=== PATIENT | female | born 1965 | race Caucasian/White ===

== ENCOUNTER 2021-06-07 04:47 | Day surgery (SDC) | payer OTHER ==
[2021-06-06 13:22] VITALS: BMI 29.9
[2021-06-07 08:33] VITALS: TEMP 98.2
[2021-06-07 09:28] VITALS: BP 125/70; PULSE 62
== END 2021-06-07 09:22 | disposition home or self-care (01) ==
LOC: JASU-ENDO 04:47
PROVIDERS: ATTEND Internal Medicine Gastroenterology
PROC: 0DJD8ZZ Inspection of Lower Intestinal Tract, Via Natural or Artificial Opening Endoscopic (ICD-10-PCS; principal; 2021-06-07 08:15)
DX: Z12.11 Encounter for screening for malignant neoplasm of colon (principal); K64.8 Other hemorrhoids; Z80.0 Family history of malignant neoplasm of digestive organs

== ENCOUNTER 2024-03-13 04:04 | Day surgery (SDC) | payer OTHER ==
[2024-03-10 12:58] VITALS: BMI 32.8
[2024-03-13 11:31] VITALS: TEMP 974.8
[2024-03-13 11:57] VITALS: RESP 18
[2024-03-13 12:17] VITALS: BP 121/74; PULSE 64
== END 2024-03-13 12:10 | disposition home or self-care (01) ==
LOC: JASU-ENDO 04:04
PROVIDERS: ATTEND Internal Medicine Gastroenterology
PROC: 0DB78ZX Excision of Stomach, Pylorus, Via Natural or Artificial Opening Endoscopic, Diagnostic (ICD-10-PCS; 2024-03-13)
PROC: 0DB68ZX Excision of Stomach, Via Natural or Artificial Opening Endoscopic, Diagnostic (ICD-10-PCS; 2024-03-13)
PROC: 0DB48ZX Excision of Esophagogastric Junction, Via Natural or Artificial Opening Endoscopic, Diagnostic (ICD-10-PCS; principal; 2024-03-13 10:30)
DX: K29.50 Unspecified chronic gastritis without bleeding (principal)
CPT/HCPCS: 88305-TC; 88342-TC